=== PATIENT | male | born 1940 ===

== ENCOUNTER 2016-08-22 06:21 | Observation (INO) | payer MEDICARE, BC ==
--- NOTE | 2016-08-16 17:23 | HP ---
HISTORY AND PHYSICAL: DATE OF PLANNED ADMISSION AND SURGERY: 08/22/16 HISTORY OF PRESENT ILLNESS: Mr. Augustine is a 75-year-old white male who is admitted with urinary retention and prostate enlargement for transurethral resection of the prostate. Mr. Augustine has had increasing voiding symptoms with hesitancy, slow stream, intermittency, and feeling of incomplete bladder emptying. The symptoms have been progressing over the last 2 to 3 years and he has not sought any treatment. In the last few months, he started having episodes of urinary incontinence at night. In early June 2016, he developed constipation and then went into urinary retention. He was in the [facility] and went to an emergency room where he was found to be in retention of 2,500 cc. He was also noted on his lab work to have renal failure with a serum creatinine of 15. He had a Fox catheter placed. He was kept in the hospital for about 1 week until the resolution of the uremia and his serum creatinine at the time of his discharge was 1.3. He was sent home on the Fox catheter drainage and on tamsulosin. He was then given a trial of voiding which failed and the catheter had to be replaced. I then saw him in my office for evaluation. He had a repeat lab work that showed that the serum creatinine was down to 1.4. At the time of his original visit to my office, the rectal exam showed a large prostate with some firmness in the right lobe, but no induration. The patient was then started on finasteride. He underwent a cystoscopy in the office on 07/27/16. The prostate was very large and obstructing and the bladder showed diffuse heavy trabeculations with catheter reaction. The patient was having very good sensation of fullness in his bladder and he could not hold more than 300 cc during the cystoscopy. At that time, I recommended that he goes on intermittent self-catheterization. It was, however, not possible to introduce the catheter due to the large prostate. I could not even place a coude catheter because of his large prostate and he ended up having a repeat cystoscopy and the Fox catheter was replaced over a guidewire. Because of the inability to introduce the catheter except endoscopically, it was not possible to perform urodynamic studies to confirm that he has good detrusor function. The patient has been on catheter drainage since that time and also has been on finasteride. At his initial presentation, while on catheter drainage, his PSA was 10.3. After being on the finasteride for 1 month, it was down to 6.9. Because of the failure of medical treatment and the urinary retention that had resulted in uremia, the patient is admitted for the above procedure. PAST MEDICAL HISTORY AND SYSTEM REVIEW: The patient is healthy. He denies any cardiac or pulmonary diseases or symptoms. He has a long history of spinal stenosis and recently has spontaneously improved. He had surgery on his spine and he attributed a lot of his leg pain to his spine. He has a history of gout and has been on allopurinol 300 mg daily. ALLERGIES: He has no allergies to any medications. PHYSICAL EXAMINATION GENERAL: He is a pleasant white male who looks his age. VITAL SIGNS: Blood pressure 120/80, pulse of 90. LUNGS: Clear. HEART: Regular and rhythmic. No murmurs. ABDOMEN: Soft. No masses, no tenderness, and no CVA tenderness. EXTERNAL GENITALIA: He is uncircumcised. No penile lesions. Normal testes and no hernias. RECTAL: Exam shows a large prostate with some firmness but no induration of the right lobe. IMPRESSION: 1. Urinary retention caused by a large obstructing prostate. 2. History of spinal stenosis. 3. History of gout. PLAN: Cystoscopy and transurethral resection of the prostate. I expect that the prostate has gotten smaller on the finasteride and that it would be amenable to transurethral resection. I discussed the operation in detail with him. Some of the potential complications including hematuria and infection were discussed. I also discussed with him that ideally, and with history of spinal stenosis, and the large retention, he should have had urodynamic studies to confirm a normal detrusor function; however, this was not possible to perform due to the inability of introducing a urethral catheter. I also discussed with him the possibility that the prostate might be too large for transurethral resection and that he might require another procedure in the future. [id number]/CPS #: [id number] KEVIN
[~2016-08-22 06:21] MED LIST: Buffered Lidocaine 1% SYR 3ML* 3 ML/SYR SYRINGE INTRADERM ONE
[2016-08-22] MEDS ORDERED: Buffered Lidocaine 1% SYR 3ML* 3 ML/SYR SYRINGE ONE (06:36)
[2016-08-22] MEDS ORDERED: cefTRIAXone(*) 2 GM ADDV.VIAL IVPB ONE (06:36)
[2016-08-22] MEDS ORDERED: Gentamicin ADULT (*) 160 MG in NS 0.9% 100 ML* 100 ML IVPB ONE (07:00)
[2016-08-22] MEDS ORDERED: fentaNYL* 50 MCG/ML 2 ML VIAL (100 MCG VIAL) ONE ×2 (07:20→08:26)
[2016-08-22] MEDS ORDERED: Midazolam* 1 MG/ML 2 ML VIAL (2 MG) ONE (07:20)
[2016-08-22] MEDS ORDERED: Lidocaine 2% PF * 5 ML VIAL ONE (08:04)
[2016-08-22] MEDS ORDERED: Famotidine IV* 10 MG/ML 2 ML (20 mg) ONE (08:04)
[2016-08-22] MEDS ORDERED: Dexamethasone IV* 4 MG/ML 1 ML (4 MG) ONE (08:04)
[2016-08-22] MEDS ORDERED: Propofol* 10 MG/ML 20 ML BTL IV PUSH ONE (08:04)
[2016-08-22] MEDS ORDERED: Desflurane* 240 ML INH ONE (08:11)
[2016-08-22] MEDS ORDERED: PROCHLORPERAZINE INJ 5 MG/ML 2 ML VIAL IV PRN (08:33)
[2016-08-22] MEDS ORDERED: Ondansetron INJ* 2 MG/ML VIAL IV PRN (08:33)
[2016-08-22] MEDS ORDERED: HYDROcodone/ACETAMIN 5-325 MG* 1 TAB PO PRN (08:33)
[2016-08-22] MEDS ORDERED: Acetaminophen TAB* 325 MG PO PRN (08:33)
[2016-08-22] MEDS ORDERED: Oxybutynin TAB* 5 MG PO PRN (11:30)
[2016-08-22] MEDS ORDERED: oxyCODONE/Acetamin 5/325 MG* TAB PO PRN ×2 (11:31)
--- NOTE | 2016-08-22 23:31 | OP ---
DATE OF OPERATION: 08/22/16 - ROOM #332 DATE OF : 42 SURGEON: Osbaldo Rubio MD ANESTHESIOLOGIST: Albert Nair MD ANESTHESIA: General. PRE-OP DIAGNOSES: 1. Urinary retention. 2. Benign prostatic hyperplasia due to above. POST-OP DIAGNOSES: 1. Urinary retention. 2. Benign prostatic hyperplasia due to above. OPERATIVE PROCEDURE: 1. Cystoscopy. 2. Transurethral resection of the prostate. INDICATION FOR PROCEDURE: Mr. Augustine is a 75-year-old white male who went into urinary retention about two months ago. He had residual of 2,500 cc. His serum creatinine was elevated at 15. He responded well to catheter drainage and his renal function went down to normal. Cystoscopy showed a large obstructing prostate and heavy bladder trabeculations. Urodynamic studies could not be performed because of inability to pass a catheter inside the bladder without endoscopic guidance. Because of the above history and findings, the above operation was advised and accepted. PATHOLOGY AT CYSTOSCOPY: The penile and bulbar urethra looked normal. The prostatic urethra measured 3.5 cm in length and there was significant degree of obstruction by trilobar hyperplasia of the prostate. Most of the obstruction from the lateral lobes and the median lobe. There was minimal apical tissue. Examination of the bladder showed diffuse heavy trabeculations with multiple cellules. There were no suspicious bladder lesion seen. No calculi or diverticula were noted. There was also a significant degree of catheter reaction. The prostate adenoma was large and moderate and vascular. DESCRIPTION OF PROCEDURE: After successful general anesthesia, the patient was placed in the dorsal lithotomy position and was prepped and draped in the usual manner. Cystoscopy was performed. The bladder was inspected and the above findings were noted. A resectoscope was then introduced inside the bladder. Mannitol/sorbitol solution was used for irrigation and the inflow and outflow were adjusted to avoid overdistention of the bladder. The elevated median lobe and the prostate tissue protruding inside the bladder neck was then resected. That allowed the visualization of the trigone and the orifices. The resection of the floor of the prostate between 5 o'clock and 8 o'clock was then performed. That allowed the partial visualization of the bladder neck through the level of the veru. Resection of the left lobe was then performed starting at 5 o'clock and proceeding anteriorly. The right lobe was resected next. The roof and the apical tissue was resected less. The limits of the resection were the bladder neck proximally, the verumontanum distally and the capsules circumferentially. The bleeders were all electrocoagulated and controlled. The bladder was irrigated periodically and the prostate chips were evacuated. At the completion of the resection, the prostatic urethra was opened. There was still residual adenomatous tissue; however, it did not seem to be obstructing. There were no open sinuses and no perforation of the capsule and no injury to the bladder or the trigone. After making ensure that all the prostate chips were removed and there was good hemostasis, the resectoscope was removed and a size 22-Swedish Fox catheter was passed inside the bladder and the balloon inflated with 30 cc of water. The catheter was then placed under gentle traction and taped to the right thigh of the patient. Irrigation yielded clear returns. The patient tolerated the procedure well and left the operating room in good condition. The blood loss was estimated at about 100 cc. The specimen was prostate chips. [id number]/[facility] #: [id number] [facility] CENTERDavey
[2016-08-23] MEDS ORDERED: cefTRIAXone VIAL(*) 1,000 MG in NS 0.9% 50 ML* 50 ML IVPB ONE (07:00)
[2016-08-23 07:43] VITALS: BP 152/82
[2016-08-23] MEDS ORDERED: Allopurinol TAB* 100 MG PO SCH (09:00)
--- NOTE | 2016-08-23 22:23 | DS ---
DISCHARGE SUMMARY: DATE OF ADMISSION: 08/22/16 DATE OF DISCHARGE: 08/23/16 FINAL DIAGNOSES: 1. Urinary retention. 2. Benign prostatic hyperplasia. OPERATION: Transurethral resection of the prostate on 08/22/16. HISTORY: Mr. Augustine is a 75-year-old white male who went into urinary retention with 2,500 cc in his bladder, associated with renal failure of creatinine of 15 about 2 months ago. He was managed with catheter drainage and his renal function went back to normal. Cystoscopy showed a large obstructing prostate. The patient is now admitted for transurethral resection of the prostate. Past and medical history is otherwise negative. He has been maintained on finasteride for the last 5 weeks. The patient is healthy except for chronic back pain. He is on no other chronic medications and he denies any allergies to medications. Preoperative lab work was within normal. PHYSICAL EXAMINATION: Showed normal vital signs, a healthy male. Rectal exam showed an enlarged prostate and there was some firmness in the right lobe, but no induration. COURSE IN HOSPITAL: The patient was admitted the morning of his procedure. He underwent an uncomplicated transurethral resection of the prostate. He did very well postoperatively. He was observed overnight and there was no excessive hematuria and by the morning his urine was clear. The patient is discharged home today on the Fox catheter and on a course of Augmentin based on his pre op urine culture. Pathology showed no malignancy in the resected prostate tissue. He will be seen next week in the office for catheter removal. [id number]/[facility] #: [id number] KEVIN
== END 2016-08-23 11:30 | disposition home or self-care (01) ==
LOC: OR 06:21 → SSU 11:01
PROVIDERS: ADMIT Urology; ATTEND Urology
PROC: 0VT08ZZ Resection of Prostate, Via Natural or Artificial Opening Endoscopic (ICD-10-PCS; principal; 2016-08-22 07:45)
DX: N40.1 Benign prostatic hyperplasia with lower urinary tract symptoms (principal); R33.8 Other retention of urine; M10.9 Gout, unspecified; Z79.899 Other long term (current) drug therapy
CPT/HCPCS: 88305; A9270-GY; G0378; J0696; J1100; J1580; J2250; J2704; J3010

== ENCOUNTER 2016-09-28 13:14 | Emergency (ER) | payer MEDICARE, BC ==
[2016-09-28] MEDS ORDERED: Apixaban* 5 MG TAB PO ONE (14:20)
[2016-09-28] MEDS ORDERED: Apixaban* 2.5 MG TAB PO ONE (14:20)
--- NOTE | 2016-09-28 14:37 | PN ---
Progress Note - Progress Note Note: Consultation note: The patient noticed swelling of both lower legs, R > L, a few days ago. No leg or chest pain, no cough or SOB. No long car or plane trips. He is sedentary. He used to ham[place] and fish but hasnit done either for some time. No weight loss. Good appetite. SH: Never smoked. Social alcohol use. Lives alone. SDM is his son Mike. PMH: Laminectomy 2016, subsequent neurogenic bladder. TURP . Gout. Lower GI bleed about 3 years ago, probably diverticular. Subsequent colonoscopy no significant lesion. Home meds: allopurinol 1 tab daily, tamsulosin 0.4 mg daily. ROS No change in bowel function. Good appetite. Fox changed regularly. No joint pains--back pain better since lami. PE : BP 176/92, HR 98, T 96.7, O2 sat 100% on RA. BMI 31.7 HEENT: normocephalic, No signs trauma. Neck: No JVD, adenopathy, JVD Heart: regular without murmur or jayy Abd: Soft, Nl BS. No tenderness, mass organomegaly Extremities: 1+ edema R leg, tr regina L leg. No calf tenderness. SKin: dry and scaly on legs. No erythema or warmth Neuro: Pleasant, in good spirits. Oriented. Good verbal skills. Foot doral and planter flexion 5/5 BL. A&P: 1. DVT R leg, calf vein thrombosis L leg, apparently due to his sedentary routine. Discussed with Dr. Floyd. I agree with apixaban tx, can take as outpt. I think the benefit outweighs the risk of GI bleeding in this case. Fup his PCP. 2. Neurogenic bladder. Fup Dr. Rubio. Continue tamsulosin. 3. Gout continue allopurinol.
--- NOTE | 2016-09-28 14:58 | RAD ---
Indication: Deep venous thrombosis. 2 views the chest including dual energy PA views demonstrate no mediastinal shift. Heart is of normal size and configuration. Lung sanches demonstrate no pleural fluid, pneumonia or pneumothorax. Tortuous descending aorta is noted. IMPRESSION: No active cardiopulmonary disease is noted.
[2016-09-28 15:15] LABS: Hematocrit 41 % (42-52); Hemoglobin 13.6 g/dl (14.0-18.0); Mean Corpuscular HGB Conc 34 g/dl (31-36); Mean Corpuscular Hemoglobin 30 pg (27-31); Mean Corpuscular Volume 88 fL (80-94); Mean Platelet Volume 9 um3 (7.4-10.4); Red Cell Distribution Width 15 % (10.5-15); White Blood Count 8.7 10^3/ul (3.5-10.8)
[2016-09-28 15:32] LABS: Albumin 3.9 g/dL (3.2-5.2); BUN/Creatinine Ratio 19.1 (8-20); C Reactive Protein 3.59 mg/L (< 5.00); Calcium 10.3 mg/dL (8.6-10.3); EGFR African American 79.9 (>60); EGFR Non-African American 62.2 (>60); Globulin 3.3 g/dL (2-4); Potassium 3.7 mmol/L (3.5-5.0); Total Bilirubin 0.6 mg/dL (0.2-1.0); Total Protein 7.2 g/dL (6.4-8.9)
[2016-09-28 16:06] VITALS: BP 152/67
--- NOTE | 2016-09-28 16:21 | ED ---
Glen Joel Billy, scribed for Shaheen Floyd MD on 09/28/16 at 1350 . Complex/Multi-Sys Presentation - HPI Summary HPI Summary: Patient is a 75 year-old male coming to [facility] for evaluation of known bilateral DVT. Patient was seen at Dr. Rubio's (urology) office today for placement of a Fox catheter secondary to neurogenic bladder. It was at that time that Dr. Rubio also ordered ultrasounds for the patient's lower extremity swelling. Patient states that the swelling has been present for the last several days. He reports cough and chronic SOB. Denies any chest pain, fevers, or chills. He denies any recent traveling, but admits to having a mostly sedentary lifestyle. Denies any recent hematuria, hematochezia, hematemesis, or any such bleeding. - History Of Current Complaint Chief Complaint: EDExtremityLower Time Seen by Provider: 09/28/16 13:44 Hx Obtained From: Patient Onset/Duration: Lasting Days, Still Present Timing: Constant Severity Currently: Moderate Severity Initially: Moderate Aggravating Factor(s): none Alleviating Factor(s): none Associated Signs And Symptoms: Positive: SOB, Cough, Edema. Negative: Chest Pain, Fever - Allergies/Home Medications Allergies/Adverse Reactions: Allergies Allergy/AdvReac Type Severity Reaction Status Date / Time No Known Allergies Allergy Verified 08/22/16 06:57 PMH/Surg Hx/FS Hx/Imm Hx Cardiovascular History: Reports: Hx Hypertension GI History: Reports: Hx Gastroesophageal Reflux Disease Denies: Other GI Disorders History: Reports: Hx Renal Disease - chronic renal failure Musculoskeletal History: Reports: Hx Arthritis - HX GOUT, RIGHT WRIST, Sensory History: Reports: Hx Contacts or Glasses - GLASSES Denies: Hx Hearing Aid Opthamlomology History: Reports: Hx Contacts or Glasses - GLASSES - Surgical History Surgery Procedure, Year, and Place: hernia surgery x 2. knee surgery X 2. BACK SURGERY JUN 2016 Hx Anesthesia Reactions: No Infectious Disease History: No Infectious Disease History: Denies: History Other Infectious Disease, Traveled Outside the [place] in Last 30 Days - Family History Known Family History: Negative: Cardiac Disease, Hypertension, Diabetes - Social History Alcohol Use: Occasionally Alcohol Amount: 2 PER DAY Substance Use Type: Reports: None Smoking Status (MU): Never Smoked Tobacco Have You Smoked in the Last Year: No Review of Systems Negative: Fever, Chills Negative: Chest Pain Positive: Shortness Of Breath - chronic, Cough Positive: see HPI Positive: Edema All Other Systems Reviewed And Are Negative: Yes Physical Exam - Summary Physical Exam Summary: The patient is an elderly male. He is well-nourished in no acute distress and in no acute pain. The skin is warm and dry and skin color reflects adequate perfusion. HEENT: The head is normocephalic and atraumatic. The pupils are equal and reactive. The conjunctivae are clear and without drainage. Nares are patent and without drainage. Mouth reveals moist mucous membranes and the throat is without erythema and exudate. The external ears are intact. The ear canals are patent and without drainage. The tympanic membranes are intact. Neck is supple with full range of motion and non-tender. There are no carotid bruits. There is no neck vein distension. Respiratory: Chest is non-tender. Lungs are clear to auscultation and breath sounds are symmetrical and equal. Cardiovascular: Heart is regular rate and rhythm. There is no murmur or rub auscultated. Abdomen: The abdomen is soft and non-tender. There are normal bowel sounds heard in all four quadrants and there is no organomegaly palpated. Fox catheter in place secondary to neurogenic bladder. Musculoskeletal: There is no back pain noted. Extremities are non-tender with full range of motion. There is good capillary refill. There is bilateral lower extremity edema, with the right ankle more swollen than the left. Neurological: Patient is alert and oriented to person, place and time. The patient has symmetrical motor strength in all four extremities. Cranial nerves are grossly intact. Deep tendon reflexes are symmetrical and equal in all four extremities. Psychiatric: The patient has an appropriate affect and does not exhibit any anxiety or depression. Triage Information Reviewed: Yes Vital Signs On Initial Exam: Initial Vitals Temp Pulse Resp BP Pulse Ox 96.7 F 98 16 176/92 100 09/28/16 13:16 09/28/16 13:16 09/28/16 13:16 09/28/16 13:16 09/28/16 13:16 Vital Signs Reviewed: Yes Diagnostics - Vital Signs Vital Signs Temp Pulse Resp BP Pulse Ox 09/28/16 13:16 96.7 F 98 16 176/92 100 - Laboratory Lab Results: Lab Results 09/28/16 09/28/16 09/28/16 Range/Units 14:55 14:55 14:55 WBC 8.7 (3.5-10.8) 10^3/ul RBC 4.60 (4.0-5.4) 10^6/ul Hgb 13.6 L (14.0-18.0) g/dl Hct 41 L (42-52) % MCV 88 (80-94) fL MCH 30 (27-31) pg MCHC 34 (31-36) g/dl RDW 15 (10.5-15) % Plt Count 171 (150-450) 10^3/ul MPV 9 (7.4-10.4) um3 Neut % (Auto) 66.4 (38-83) % Lymph % (Auto) 19.1 L (25-47) % [place]lette % (Auto) 9.2 H (1-9) % Eos % (Auto) 4.6 (0-6) % Baso % (Auto) 0.7 (0-2) % Absolute Neuts (auto) 5.8 (1.5-7.7) 10^3/ul Absolute Lymphs (auto) 1.7 (1.0-4.8) 10^3/ul Absolute Monos (auto) 0.8 (0-0.8) 10^3/ul Absolute Eos (auto) 0.4 (0-0.6) 10^3/ul Absolute Basos (auto) 0.1 (0-0.2) 10^3/ul Absolute Nucleated RBC 0 10^3/ul Nucleated RBC % 0 INR (Anticoag Therapy) 1.02 (0.89-1.11) Sodium 136 (133-145) mmol/L Potassium 3.7 (3.5-5.0) mmol/L Chloride 107 (101-111) mmol/L Carbon Dioxide 24 (22-32) mmol/L Anion Gap 5 (2-11) mmol/L BUN 22 (6-24) mg/dL Creatinine 1.15 (0.67-1.17) mg/dL Est GFR ( Amer) 79.9 (>60) Est GFR (Non-Af Amer) 62.2 (>60) BUN/Creatinine Ratio 19.1 (8-20) Glucose 92 (70-100) mg/dL Calcium 10.3 (8.6-10.3) mg/dL Total Bilirubin 0.60 (0.2-1.0) mg/dL AST 18 (13-39) U/L ALT 20 (7-52) U/L Alkaline Phosphatase 73 (34-104) U/L C-Reactive Protein 3.59 (< 5.00) mg/L B-Natriuretic Peptide ( - 100) pg/mL Total Protein 7.2 (6.4-8.9) g/dL Albumin 3.9 (3.2-5.2) g/dL Globulin 3.3 (2-4) g/dL Albumin/Globulin Ratio 1.2 (1-3) 09/28/16 Range/Units 14:55 WBC (3.5-10.8) 10^3/ul RBC (4.0-5.4) 10^6/ul Hgb (14.0-18.0) g/dl Hct (42-52) % MCV (80-94) fL MCH (27-31) pg MCHC (31-36) g/dl RDW (10.5-15) % Plt Count (150-450) 10^3/ul MPV (7.4-10.4) um3 Neut % (Auto) (38-83) % Lymph % (Auto) (25-47) % [place]lette % (Auto) (1-9) % Eos % (Auto) (0-6) % Baso % (Auto) (0-2) % Absolute Neuts (auto) (1.5-7.7) 10^3/ul Absolute Lymphs (auto) (1.0-4.8) 10^3/ul Absolute Monos (auto) (0-0.8) 10^3/ul Absolute Eos (auto) (0-0.6) 10^3/ul Absolute Basos (auto) (0-0.2) 10^3/ul Absolute Nucleated RBC 10^3/ul Nucleated RBC % INR (Anticoag Therapy) (0.89-1.11) Sodium (133-145) mmol/L Potassium (3.5-5.0) mmol/L Chloride (101-111) mmol/L Carbon Dioxide (22-32) mmol/L Anion Gap (2-11) mmol/L BUN (6-24) mg/dL Creatinine (0.67-1.17) mg/dL Est GFR ( Amer) (>60) Est GFR (Non-Af Amer) (>60) BUN/Creatinine Ratio (8-20) Glucose (70-100) mg/dL Calcium (8.6-10.3) mg/dL Total Bilirubin (0.2-1.0) mg/dL AST (13-39) U/L ALT (7-52) U/L Alkaline Phosphatase (34-104) U/L C-Reactive Protein (< 5.00) mg/L B-Natriuretic Peptide 30 ( - 100) pg/mL Total Protein (6.4-8.9) g/dL Albumin (3.2-5.2) g/dL Globulin (2-4) g/dL Albumin/Globulin Ratio (1-3) Result Diagrams: 09/28/16 14:55 09/28/16 14:55 Lab Statement: Any lab studies that have been ordered have been reviewed, and results considered in the medical decision making process. - Radiology CXR Xray Interpretation: No Acute Changes Radiology Interpretation Completed By: Radiologist - EKG 1323 EKG Interpretation: NSR 84 bpm, no ST elevation, Q-waves in II and aVF Complex Multi-Symp Course/Dx Assessment/Plan: Patient is a 75 year-old male coming to [facility] for evaluation of known bilateral DVT. Patient was seen at Dr. Rubio's (urology) office today for placement of a Fox catheter secondary to neurogenic bladder. It was at that time that Dr. Rubio also ordered ultrasounds for the patient's lower extremity swelling. Patient states that the swelling has been present for the last several days. He reports cough and chronic SOB. Denies any chest pain, fevers, or chills. He denies any recent traveling, but admits to having a mostly sedentary lifestyle. Denies any recent hematuria, hematochezia, hematemesis, or any such bleeding. Bloodwork WNL except for slight chronic anemia. Ultrasound of the lower extremities shows extensive thrombus of the deep venous system of the RLE and thrombus of the calf veins on the left. I discussed the findings and test results with Dr. Lorenzo who recommended that the patient be discharged. He consulted for the patient and recommended that the patient be placed on Eliquis. He received his first dose here and will be discharged with Eliquis home to follow up with PCP. He feels comfortable with the patient receiving Eliquis despite the fact that the had an episode of GI bleed 3 years ago. He is hemodynamically stable, A&Ox3. I discussed all the findings and test results with the patient. Patient was instructed to return to the emergency room immediately if any of the symptoms return or worsens. Plan of care was discussed with the patient and understands and agrees. All questions were answered at patient satisfaction. There were no further complaints or concerns. Lung exam before discharge: CTA B/L. Good air exchange. No wheezing or crackles heard. CVS: S1 and S2 present. No murmurs appreciated. Patient is alert and oriented x 3. Patient is hemodynamically stable. Patient will be discharged home with follow up forensic social worker in the next 2-3 days - Diagnoses Provider Diagnoses: Deep vein thrombosis - Physician Notifications Discussed Care Of Patient With: Dr. Lorenzo (hospitalist) @ 1420: recommends discharge on Eliquis. Discharge - Discharge Plan Condition: Stable Disposition: HOME Prescriptions: Apixaban* [Eliquis*] 10 mg PO BID #74 tab Patient Education Materials: Apixaban (By mouth) Referrals: [facility] [Outside] The documentation as recorded by the Glen greer Billy accurately reflects the service I personally performed and the decisions made by me, Shaheen Floyd MD.
== END 2016-09-28 16:05 | disposition home or self-care (01) ==
LOC: ED 13:14
DX: I82.4Z3 Acute embolism and thrombosis of unspecified deep veins of distal lower extremity, bilateral (principal); R06.02 Shortness of breath; R60.9 Edema, unspecified; R05 Cough
CPT/HCPCS: 36415; 71020; 80053; 83880; 85025; 85610; 86140; 93005; 93970; 99282